=== PATIENT | female | born 1945 | race Caucasian/White ===

== ENCOUNTER 2016-11-19 10:44 | Inpatient (IN) ==
[2016-11-19] MEDS ORDERED: PROPOFOL 1,000 MG/100 ML BOTTLE IV ONE (10:55)
[2016-11-19] MEDS: PROPOFOL 1,000 MG/100 ML BOTTLE IV SCH (11:00)
[2016-11-19 11:29] LABS: ABG Base Excess -7.8 MMOL/L (-2.5-2.5); ABG HCO3 18.2 MMOL/L (20-26); ABG Oxygen Saturation 98.7 % (95-100); ABG PCO2 35.8 MM HG (35-48); ABG PH 7.307 (7.35-7.45); ABG TCO2 16.3 MMOL/L (23-27)
[2016-11-19 11:41] LABS: Basophils % 0.1 % (0.0-0.8); Eosinophils % 0.1 % (0.00-10.9); Hematocrit 33.4 VOL% (35.7-47.0); Hemoglobin 11.1 GM/DL (12.0-16.0); Immature Granulocytes % 2.1 %; Immature Granulocytes Absolute 0.27 #; Lymphocytes # 0.6 10*3/uL (1.4-4.0); Lymphocytes % 4.9 % (21.3-54.2); Mean Corpuscular HGB Conc 33.2 GM/DL (32-36); Mean Corpuscular Hemoglobin 28 PG (27-34); Mean Corpuscular Volume 83.5 FL (87-102); Mean Platelet Volume 11.5 FL (9.6-12.0); Monocytes # 0.7 10*3/uL (0.11-0.8); Monocytes % 5.3 % (1.7-12.7); NRBC # 0.03 10*3/uL; Neutrophils # 11.3 10*3/uL (1.4-7.4); Neutrophils % 87.5 % (38.7-73.9); Platelet Count 297 T/CUMM (130-400); Red Cell Distribution Width 15.4 % (9.3-17.3); White Blood Count 12.9 T/CUMM (4-12)
[2016-11-19 11:47] LABS: PT Patient Result 10.2 SECS
[2016-11-19 12:15] LABS: Alanine Aminotransferase 23 U/L (13-56); Albumin 1.8 G/DL (3.4-5.0); Alkaline Phosphatase 149 U/L (45-117); Aspartate Amino Transferase 38 U/L (0-37); Blood Urea Nitrogen 75 MG/DL (7-18); CKMB % 2.1 %; Calcium 8.6 MG/DL (8.5-10.1); Glucose 356 MG/DL (74-106); Osmolality,Calculated 277.2 MOS/KG (273-304); Troponin I Only < 0.015 NG/ML (0.00-0.045)
[2016-11-19 12:29] LABS: Band Neutrophils 1 % (0-10); Giant Platelets Few; Lymphocytes 7 % (20-55); Nucleated Red Blood Cells 1 (0-5); Platelet Estimate Adequate; Segmented Neutrophils 86 % (50-85); Total Cells Counted 100
[2016-11-19 12:30] LABS: Burr Cells Slight; Hypochromasia Slight; Ovalocytes Slight
[2016-11-19 12:32] LABS: Potassium 8.5 MMOL/L (3.5-5.1); Sodium 120 MMOL/L (136-145)
[2016-11-19 13:17] LABS: Apearance,Urine Slightly Hazy (Clear); Bacteria,Urine Occasional /HPF (Few); Bilirubin,Urine Negative (Negative); Blood, Urine Small mg/dL (Negative); Glucose,Urine (UA) Negative (Negative); Hyaline Casts,Urine 5 /LPF (0-3); Ketones,Urine Negative (Negative); Mucus,Urine Occasional /LPF (Occasional); Nitrite,Urine Negative (Negative); Protein,Urine 100 MG/DL; RBC,Urine 1 /HPF (0-4); Squamous Epithelial Cell,Urine Occasional /HPF (0-10); Urine Color Yellow (Yellow); Urine Urobilinogen < 2.0 EU/DL (0.2-1.0); WBC,Urine 2 /HPF (0-6)
[2016-11-19 13:25] LABS: Barbiturates Screen,Urine Negative (Negative); Benzodiazepines Screen,Urine Positive (Negative); Cannabinoid Screen,Urine Negative (Negative); Opiate Screen,Urine Positive (Negative); Phencyclidine Screen,Urine Negative (Negative)
[2016-11-19] MEDS ORDERED: CALCIUM CHLORIDE 1,000 MG/10 ML SYRINGE IV STA (14:06)
[2016-11-19] MEDS ORDERED: DEXTROSE 50% 25 GM/50 ML VIAL IV STA (14:06)
[2016-11-19] MEDS ORDERED: ALBUTEROL NEB SOLN 5 MG/ML 20 ML/BOTTLE CONT NEB STA (14:06)
[2016-11-19] MEDS ORDERED: LEVOFLOXACIN INJ 750 MG in PREMIX 1 EACH IV STA (14:07)
[2016-11-19] MEDS ORDERED: INSULIN REGULAR 100 UNIT/ML IV STA (14:07)
[2016-11-19] MEDS ORDERED: DEXTROSE 50% 25 GM/50 ML SYRINGE IV ONE (14:18)
[2016-11-19] MEDS ORDERED: LEVOFLOXACIN INJ 150 ML IV ONE (14:18)
[2016-11-19] MEDS ORDERED: CALCIUM CHLORIDE 1,000 MG/10 ML SYRINGE IV ONE (14:18)
[2016-11-19] MEDS ORDERED: INSULIN REGULAR 100 UNIT/ML ONE (14:19)
[2016-11-19 14:41] LABS: ABG HCO3 19.5 MMOL/L (20-26); ABG Oxygen Saturation 97.9 % (95-100); ABG PCO2 42.9 MM HG (35-48); ABG PH 7.286 (7.35-7.45); ABG TCO2 18.7 MMOL/L (23-27)
[2016-11-19] MEDS ORDERED: ALBUTEROL 2.5 MG/3 ML NEB RESP TX PRN (14:59)
[2016-11-19] MEDS ORDERED: ALBUTEROL/IPRATROPIUM 3 ML NEB RESP TX PRN (14:59)
[2016-11-19] MEDS ORDERED: ONDANSETRON 4 MG/2 ML VIAL IV PRN (14:59)
[2016-11-19] MEDS ORDERED: ACETAMINOPHEN 325 MG TABLET PO PRN (14:59)
[2016-11-19] MEDS ORDERED: ATROPINE 1 MG/1 ML VIAL ONE (15:31)
[2016-11-19 15:44] LABS: Alanine Aminotransferase 27 U/L (13-56); Albumin 1.8 G/DL (3.4-5.0); Alkaline Phosphatase 155 U/L (45-117); Aspartate Amino Transferase 56 U/L (0-37); Bilirubin,Total < 0.39 MG/DL (0.2-1.0); Blood Urea Nitrogen 68 MG/DL (7-18); Glucose 376 MG/DL (74-106); Osmolality,Calculated 285.5 MOS/KG (273-304); Sodium 125 MMOL/L (136-145); Total Protein 4.1 G/DL (6.4-8.3)
[2016-11-19 15:49] LABS: Potassium 7.4 MMOL/L (3.5-5.1)
[2016-11-19] MEDS: SODIUM POLYSTYRENE SULFATE 15 GM/60 ML BOTTLE PO SCH ×2 (16:17→23:22)
[2016-11-19] MEDS: SODIUM CHLORIDE 0.9% 1,000 ML IV SCH (16:17)
[2016-11-19] MEDS ORDERED: SODIUM PHOSPHATE ENEMA 133 ML BOTTLE RECTAL ONE (16:32)
[2016-11-19] MEDS ORDERED: CALCIUM GLUCONATE 1,000 MG in SODIUM CHLORIDE 0.9% 100 ML IV ONE (16:32)
[2016-11-19] MEDS ORDERED: SODIUM POLYSTYRENE SULFATE 15 GM/60 ML BOTTLE RECTAL ONE (16:32)
[2016-11-19] MEDS: ENOXAPARIN 30 MG/0.3 ML SYRINGE SUBCUT SCH (16:38)
[2016-11-19] MEDS: PANTOPRAZOLE 40 MG VIAL IV SCH (16:39)
[2016-11-19] MEDS ORDERED: SODIUM BICARB INJ 150 MEQ in DEXTROSE 5% 1,000 ML IV SCH (17:00)
[2016-11-19] MEDS: SODIUM BICARB INJ 150 MEQ in DEXTROSE 5% 1,000 ML IV SCH (17:27)
[2016-11-19] MEDS ORDERED: INFLUENZA VIRUS VACCINE 0.5 ML SYRINGE IM ONE (18:12)
[2016-11-19 18:22] LABS: CKMB % 1.4 %; Troponin I Only 0.025 NG/ML (0.00-0.045)
[2016-11-19 20:14] LABS: Hepatitis A Ab IgM Quant 0.09 Index; Hepatitis A Ab IgM Result Negative (Negative); Hepatitis B Core IgM Quant 0.16 Index; Hepatitis B Core IgM Result Negative (Negative); Hepatitis B Surface Ag Quant < 0.10 Index; Hepatitis B Surface Ag Result Negative (Negative); Hepatitis C Virus Ab Result Negative (Negative)
[2016-11-19 21:07] LABS: Calcium 8.7 MG/DL (8.5-10.1); Osmolality,Calculated 291.7 MOS/KG (273-304); Potassium 4.5 MMOL/L (3.5-5.1)
[2016-11-19 23:01] LABS: Albumin 1.6 G/DL (3.4-5.0); Calcium 8.7 MG/DL (8.5-10.1); Osmolality,Calculated 280.8 MOS/KG (273-304); Phosphorous 1.7 MG/DL (2.5-4.9)
[2016-11-20] MEDS: PROPOFOL 1,000 MG/100 ML BOTTLE IV SCH ×2 (01:24→14:39)
[2016-11-20 02:04] LABS: CKMB % 1.5 %; Troponin I Only 0.022 NG/ML (0.00-0.045)
[2016-11-20 03:38] LABS: ABG Base Excess 14.2 MMOL/L (-2.5-2.5); ABG HCO3 36.7 MMOL/L (20-26); ABG PCO2 37.5 MM HG (35-48); ABG PH 7.608 (7.35-7.45); ABG PO2 102.8 MM HG (80-95); ABG TCO2 37.8 MMOL/L (23-27); Allen Test Positive; Pt O2 Delivery Device Ventilator
[2016-11-20 05:01] LABS: Basophils % 0.1 % (0.0-0.8); Hematocrit 30.3 VOL% (35.7-47.0); Hemoglobin 10.4 GM/DL (12.0-16.0); Immature Granulocytes Absolute 0.07 #; Lymphocytes # 0.3 10*3/uL (1.4-4.0); Lymphocytes % 4.6 % (21.3-54.2); Mean Corpuscular HGB Conc 34.3 GM/DL (32-36); Mean Corpuscular Hemoglobin 27 PG (27-34); Mean Corpuscular Volume 79.7 FL (87-102); Mean Platelet Volume 11.2 FL (9.6-12.0); Monocytes # 0.4 10*3/uL (0.11-0.8); NRBC # 0.03 10*3/uL; Neutrophils # 6.4 10*3/uL (1.4-7.4); Neutrophils % 89.3 % (38.7-73.9); Platelet Count 299 T/CUMM (130-400); Red Cell Distribution Width 15.1 % (9.3-17.3); White Blood Count 7.2 T/CUMM (4-12)
[2016-11-20 05:28] LABS: Ammonia 43 UMOL/L (11-32)
[2016-11-20 05:33] LABS: Alanine Aminotransferase 23 U/L (13-56); Albumin 1.6 G/DL (3.4-5.0); Alkaline Phosphatase 135 U/L (45-117); Aspartate Amino Transferase 60 U/L (0-37); Bilirubin,Total < 0.39 MG/DL (0.2-1.0); Blood Urea Nitrogen 17 MG/DL (7-18); Calcium 8.2 MG/DL (8.5-10.1); Glucose 222 MG/DL (74-106); Potassium 3.6 MMOL/L (3.5-5.1); Sodium 136 MMOL/L (136-145); Total Protein 3.6 G/DL (6.4-8.3)
[2016-11-20 05:47] LABS: Giant Platelets Few; Hypochromasia 1+; Lymphocytes 6 % (20-55); PT Patient Result 10.9 SECS; Platelet Estimate Adequate; Segmented Neutrophils 91 % (50-85); Total Cells Counted 100
[2016-11-20] MEDS: SODIUM CHLORIDE 0.9% 1,000 ML IV SCH (07:21)
[2016-11-20 07:34] LABS: CKMB % 0.9 %; Troponin I Only 0.032 NG/ML (0.00-0.045)
[2016-11-20] MEDS ORDERED: DILTIAZEM 100 MG VIAL.ADD IV ONE (07:46)
[2016-11-20] MEDS ORDERED: DILTIAZEM 50 MG/10 ML VIAL IV ONE ×2 (07:46→07:50)
[2016-11-20] MEDS ORDERED: SODIUM CHLORIDE 0.9% 100 ML IV ONE (07:49)
[2016-11-20] MEDS: DILTIAZEM INJ 100 MG in SODIUM CHLORIDE 0.9% 100 ML IV SCH (08:25)
[2016-11-20] MEDS: SODIUM BICARB INJ 150 MEQ in DEXTROSE 5% 1,000 ML IV SCH (08:26)
[2016-11-20] MEDS ORDERED: GLUCAGON 1 MG VIAL IM PRN (08:48)
[2016-11-20] MEDS ORDERED: DEXTROSE 50% 25 GM/50 ML VIAL IV PRN (08:48)
[2016-11-20] MEDS ORDERED: DILTIAZEM 30 MG TABLET PO SCH (09:00)
[2016-11-20] MEDS ORDERED: SODIUM ACETATE 50 MEQ in DEXTROSE 5% NACL 0.45% 1,000 ML IV SCH (09:00)
[2016-11-20 09:14] LABS: Phosphorous 1.9 MG/DL (2.5-4.9); Prealbumin 13.1 MG/DL (20-40)
[2016-11-20] MEDS: methylPREDNISolone SOD SUC 125 MG/2 ML VIAL IV SCH (09:46)
[2016-11-20] MEDS: TACROLIMUS 0.5 MG CAPSULE PO SCH ×2 (09:47→20:21)
[2016-11-20] MEDS ORDERED: DILTIAZEM 60 MG TABLET PO SCH (10:30)
[2016-11-20] MEDS ORDERED: ASPIRIN CHEW 81 MG TABLET PO SCH (10:30)
[2016-11-20] MEDS ORDERED: DILTIAZEM 30 MG TABLET PO ONE (10:34)
[2016-11-20] MEDS ORDERED: FUROSEMIDE 40 MG/4 ML VIAL IV ONE (10:47)
[2016-11-20] MEDS ORDERED: TACROLIMUS 0.5 MG CAPSULE PO SCH (11:30)
[2016-11-20 11:57] LABS: Troponin I Only 0.035 NG/ML (0.00-0.045)
[2016-11-20] MEDS: LEVOTHYROXINE 125 MCG TABLET PO SCH (12:20)
[2016-11-20] MEDS: INSULIN REGULAR 100 UNIT/ML SUBCUT SCH ×2 (12:20→18:37)
[2016-11-20] MEDS: risperiDONE 1 MG TABLET PO SCH (12:20)
[2016-11-20] MEDS: MORPHINE ER 15 MG TABLET PO SCH ×2 (12:21→22:35)
[2016-11-20] MEDS: PANTOPRAZOLE 40 MG VIAL IV SCH (14:39)
[2016-11-20] MEDS: DILTIAZEM 60 MG TABLET PO SCH ×2 (16:26→22:35)
[2016-11-20] MEDS: ENOXAPARIN 30 MG/0.3 ML SYRINGE SUBCUT SCH (16:26)
[2016-11-20] MEDS: MONTELUKAST 10 MG TABLET PO SCH (20:21)
[2016-11-21] MEDS: INSULIN REGULAR 100 UNIT/ML SUBCUT SCH ×4 (00:10→18:07)
[2016-11-21 03:11] LABS: ABG Base Excess 15.9 MMOL/L (-2.5-2.5); ABG HCO3 37.9 MMOL/L (20-26); ABG PCO2 35.8 MM HG (35-48); ABG PH 7.643 (7.35-7.45); ABG PO2 165.1 MM HG (80-95); Allen Test Positive; Pt O2 Delivery Device Ventilator
[2016-11-21 03:17] LABS: Basophils % 0.1 % (0.0-0.8); Hematocrit 30.4 VOL% (35.7-47.0); Hemoglobin 10.2 GM/DL (12.0-16.0); Immature Granulocytes % 0.8 %; Immature Granulocytes Absolute 0.08 #; Lymphocytes # 0.8 10*3/uL (1.4-4.0); Lymphocytes % 7.9 % (21.3-54.2); Mean Corpuscular HGB Conc 33.6 GM/DL (32-36); Mean Corpuscular Hemoglobin 27 PG (27-34); Mean Corpuscular Volume 81.3 FL (87-102); Mean Platelet Volume 10.6 FL (9.6-12.0); Monocytes # 0.6 10*3/uL (0.11-0.8); Monocytes % 5.4 % (1.7-12.7); Neutrophils # 8.7 10*3/uL (1.4-7.4); Neutrophils % 85.8 % (38.7-73.9); Platelet Count 281 T/CUMM (130-400); Red Blood Count 3.74 MC/CUMM (3.8-5.5); Red Cell Distribution Width 15.4 % (9.3-17.3); White Blood Count 10.1 T/CUMM (4-12)
[2016-11-21 03:38] LABS: Calcium 7.6 MG/DL (8.5-10.1); Magnesium 1.9 MG/DL (1.8-2.4); Phosphorous 2.5 MG/DL (2.5-4.9); Prealbumin 11.5 MG/DL (20-40)
[2016-11-21 03:48] LABS: Potassium 2.4 MMOL/L (3.5-5.1)
[2016-11-21] MEDS: PROPOFOL 1,000 MG/100 ML BOTTLE IV SCH ×3 (04:32→22:12)
[2016-11-21] MEDS: DILTIAZEM 60 MG TABLET PO SCH ×4 (04:33→22:57)
[2016-11-21] MEDS: POTASSIUM CHLORIDE RIDER 10 MEQ in PREMIX 1 EACH IV PRN ×3 (05:55→08:00)
[2016-11-21] MEDS ORDERED: POTASSIUM CHLORIDE 20 MEQ/15 ML UDCUP PER TUBE ONE (08:00)
[2016-11-21] MEDS: LEVOTHYROXINE 125 MCG TABLET PO SCH (08:33)
[2016-11-21] MEDS: TACROLIMUS 0.5 MG CAPSULE PO SCH ×2 (08:34→21:10)
[2016-11-21] MEDS: ASPIRIN EC 81 MG TABLET PO SCH (08:34)
[2016-11-21] MEDS: risperiDONE 1 MG TABLET PO SCH (08:34)
[2016-11-21] MEDS: methylPREDNISolone SOD SUC 125 MG/2 ML VIAL IV SCH (08:36)
[2016-11-21] MEDS ORDERED: DILTIAZEM CD 120 MG CAPSULE PO SCH (09:00)
[2016-11-21] MEDS: DILTIAZEM INJ 100 MG in SODIUM CHLORIDE 0.9% 100 ML IV SCH (10:58)
[2016-11-21] MEDS: MORPHINE ER 15 MG TABLET PO SCH ×2 (11:05→22:56)
[2016-11-21] MEDS: LEVOFLOXACIN INJ 500 MG in PREMIX 1 EACH IV SCH (11:05)
[2016-11-21] MEDS: PANTOPRAZOLE 40 MG VIAL IV SCH (16:58)
[2016-11-21] MEDS: ENOXAPARIN 30 MG/0.3 ML SYRINGE SUBCUT SCH (17:04)
[2016-11-21] MEDS: MONTELUKAST 10 MG TABLET PO SCH (21:10)
[2016-11-22] MEDS: INSULIN REGULAR 100 UNIT/ML SUBCUT SCH ×5 (01:14→23:47)
[2016-11-22 04:12] LABS: Basophils % 0.2 % (0.0-0.8); Hematocrit 29.9 VOL% (35.7-47.0); Hemoglobin 9.9 GM/DL (12.0-16.0); Immature Granulocytes % 1.8 %; Immature Granulocytes Absolute 0.16 #; Lymphocytes # 0.6 10*3/uL (1.4-4.0); Lymphocytes % 6.4 % (21.3-54.2); Mean Corpuscular HGB Conc 33.1 GM/DL (32-36); Mean Corpuscular Hemoglobin 27 PG (27-34); Mean Corpuscular Volume 82.1 FL (87-102); Mean Platelet Volume 10.5 FL (9.6-12.0); Monocytes # 0.6 10*3/uL (0.11-0.8); Monocytes % 6.4 % (1.7-12.7); NRBC # 0.02 10*3/uL; Neutrophils # 7.5 10*3/uL (1.4-7.4); Neutrophils % 85.2 % (38.7-73.9); Platelet Count 281 T/CUMM (130-400); Red Blood Count 3.64 MC/CUMM (3.8-5.5); Red Cell Distribution Width 15.3 % (9.3-17.3); White Blood Count 8.8 T/CUMM (4-12)
[2016-11-22 04:18] LABS: ABG Base Excess 12.8 MMOL/L (-2.5-2.5); ABG HCO3 37.3 MMOL/L (20-26); ABG Oxygen Saturation 98.2 % (95-100); ABG PCO2 47.8 MM HG (35-48); ABG PO2 195.2 MM HG (80-95); ABG TCO2 38.8 MMOL/L (23-27)
[2016-11-22 04:23] LABS: PT Patient Result 10.4 SECS; Partial Thromboplastin Time 28.7 SECS (0-40)
[2016-11-22] MEDS: DILTIAZEM 60 MG TABLET PO SCH ×4 (04:35→22:56)
[2016-11-22 04:36] LABS: Calcium 7.7 MG/DL (8.5-10.1); Magnesium 1.9 MG/DL (1.8-2.4); Osmolality,Calculated 289.4 MOS/KG (273-304); Potassium 3.7 MMOL/L (3.5-5.1)
[2016-11-22 05:15] LABS: Free T4 (Free Thyroxine) 0.83 NG/DL (0.76-1.46); Thyroid Stimulating Hormone 0.525 uIU/ml (0.358-3.74)
[2016-11-22] MEDS: PROPOFOL 1,000 MG/100 ML BOTTLE IV SCH ×2 (05:16→18:08)
[2016-11-22] MEDS: methylPREDNISolone SOD SUC 125 MG/2 ML VIAL IV SCH (10:06)
[2016-11-22] MEDS: ALBUMIN 25% 25 GM in PREMIX 1 EACH IV SCH ×2 (10:10→16:57)
[2016-11-22] MEDS: TACROLIMUS 0.5 MG CAPSULE PO SCH ×2 (10:15→21:20)
[2016-11-22] MEDS: risperiDONE 1 MG TABLET PO SCH (10:16)
[2016-11-22] MEDS: LEVOTHYROXINE 125 MCG TABLET PO SCH (10:17)
[2016-11-22] MEDS: ASPIRIN EC 81 MG TABLET PO SCH (10:17)
[2016-11-22] MEDS: LEVOFLOXACIN INJ 500 MG in PREMIX 1 EACH IV SCH (10:18)
[2016-11-22] MEDS: MUPIROCIN 2% OINT 22 GM TUBE TOP SCH ×2 (12:48→21:26)
[2016-11-22] MEDS: MORPHINE ER 15 MG TABLET PO SCH ×2 (12:48→22:56)
[2016-11-22] MEDS: LINEZOLID INJ 300 MG in PREMIX 1 EACH IV SCH (16:30)
[2016-11-22] MEDS: PANTOPRAZOLE 40 MG VIAL IV SCH (16:30)
[2016-11-22] MEDS: FUROSEMIDE 40 MG/4 ML VIAL IV SCH (16:32)
[2016-11-22] MEDS: ENOXAPARIN 30 MG/0.3 ML SYRINGE SUBCUT SCH (16:40)
[2016-11-22] MEDS: MONTELUKAST 10 MG TABLET PO SCH (21:20)
[2016-11-23] MEDS: ALBUMIN 25% 25 GM in PREMIX 1 EACH IV SCH ×3 (00:50→16:20)
[2016-11-23] MEDS: PROPOFOL 1,000 MG/100 ML BOTTLE IV SCH ×2 (01:45→12:30)
[2016-11-23] MEDS: LINEZOLID INJ 300 MG in PREMIX 1 EACH IV SCH ×2 (01:50→14:36)
[2016-11-23 03:29] LABS: ABG Base Excess 13.2 MMOL/L (-2.5-2.5); ABG HCO3 37.8 MMOL/L (20-26); ABG Oxygen Saturation 97.8 % (95-100); ABG PCO2 49.5 MM HG (35-48); ABG PH 7.501 (7.35-7.45); ABG PO2 167.9 MM HG (80-95); ABG TCO2 39.3 MMOL/L (23-27)
[2016-11-23] MEDS: DILTIAZEM 60 MG TABLET PO SCH ×4 (04:42→22:23)
[2016-11-23 05:21] LABS: Basophils % 0.2 % (0.0-0.8); Hematocrit 26.7 VOL% (35.7-47.0); Hemoglobin 8.9 GM/DL (12.0-16.0); Immature Granulocytes % 4.1 %; Immature Granulocytes Absolute 0.41 #; Lymphocytes # 0.6 10*3/uL (1.4-4.0); Mean Corpuscular HGB Conc 33.3 GM/DL (32-36); Mean Corpuscular Hemoglobin 28 PG (27-34); Mean Corpuscular Volume 82.4 FL (87-102); Mean Platelet Volume 10.4 FL (9.6-12.0); Monocytes # 0.8 10*3/uL (0.11-0.8); Monocytes % 7.6 % (1.7-12.7); Neutrophils # 8.2 10*3/uL (1.4-7.4); Neutrophils % 82.1 % (38.7-73.9); Platelet Count 233 T/CUMM (130-400); Red Blood Count 3.24 MC/CUMM (3.8-5.5)
[2016-11-23] MEDS: INSULIN REGULAR 100 UNIT/ML SUBCUT SCH ×3 (05:32→18:15)
[2016-11-23 05:50] LABS: Calcium 7.7 MG/DL (8.5-10.1); Magnesium 1.9 MG/DL (1.8-2.4); Osmolality,Calculated 287.7 MOS/KG (273-304); Potassium 3.2 MMOL/L (3.5-5.1)
[2016-11-23] MEDS ORDERED: POTASSIUM CHLORIDE 20 MEQ/15 ML UDCUP PER TUBE ONE (08:25)
[2016-11-23] MEDS: FUROSEMIDE 40 MG/4 ML VIAL IV SCH ×2 (08:53→16:20)
[2016-11-23] MEDS: LEVOTHYROXINE 125 MCG TABLET PO SCH (08:54)
[2016-11-23] MEDS: ASPIRIN EC 81 MG TABLET PO SCH (08:54)
[2016-11-23] MEDS: TACROLIMUS 0.5 MG CAPSULE PO SCH ×2 (08:54→21:11)
[2016-11-23] MEDS: risperiDONE 1 MG TABLET PO SCH (08:54)
[2016-11-23] MEDS: methylPREDNISolone SOD SUC 125 MG/2 ML VIAL IV SCH (08:55)
[2016-11-23] MEDS: LEVOFLOXACIN INJ 500 MG in PREMIX 1 EACH IV SCH (09:55)
[2016-11-23] MEDS: MUPIROCIN 2% OINT 22 GM TUBE TOP SCH ×2 (09:55→21:11)
[2016-11-23] MEDS: MORPHINE ER 15 MG TABLET PO SCH ×2 (12:01→22:30)
[2016-11-23] MEDS: PANTOPRAZOLE 40 MG VIAL IV SCH (14:28)
[2016-11-23] MEDS: ENOXAPARIN 30 MG/0.3 ML SYRINGE SUBCUT SCH (16:20)
[2016-11-23] MEDS: MONTELUKAST 10 MG TABLET PO SCH (21:11)
[2016-11-24] MEDS: ALBUMIN 25% 25 GM in PREMIX 1 EACH IV SCH (00:17)
[2016-11-24] MEDS: INSULIN REGULAR 100 UNIT/ML SUBCUT SCH ×4 (00:19→18:25)
[2016-11-24] MEDS: LINEZOLID INJ 300 MG in PREMIX 1 EACH IV SCH ×2 (01:29→15:39)
[2016-11-24] MEDS: PROPOFOL 1,000 MG/100 ML BOTTLE IV SCH ×2 (01:29→11:16)
[2016-11-24 03:36] LABS: ABG Base Excess 13.2 MMOL/L (-2.5-2.5); ABG HCO3 38.1 MMOL/L (20-26); ABG Oxygen Saturation 98.1 % (95-100); ABG PCO2 50.3 MM HG (35-48); ABG PH 7.497 (7.35-7.45); ABG PO2 189.1 MM HG (80-95); ABG TCO2 39.6 MMOL/L (23-27); Allen Test Positive; Pt O2 Delivery Device Ventilator
[2016-11-24] MEDS: DILTIAZEM 60 MG TABLET PO SCH ×4 (04:11→22:23)
[2016-11-24 04:47] LABS: Calcium 8.4 MG/DL (8.5-10.1); Magnesium 1.8 MG/DL (1.8-2.4); Osmolality,Calculated 289.7 MOS/KG (273-304); Potassium 2.7 MMOL/L (3.5-5.1)
[2016-11-24 04:51] LABS: Basophils % 0.1 % (0.0-0.8); Hematocrit 26.8 VOL% (35.7-47.0); Hemoglobin 8.9 GM/DL (12.0-16.0); Immature Granulocytes % 3.8 %; Immature Granulocytes Absolute 0.38 #; Lymphocytes # 0.7 10*3/uL (1.4-4.0); Lymphocytes % 6.8 % (21.3-54.2); Mean Corpuscular HGB Conc 33.2 GM/DL (32-36); Mean Corpuscular Hemoglobin 27 PG (27-34); Mean Corpuscular Volume 82.5 FL (87-102); Mean Platelet Volume 10.6 FL (9.6-12.0); Monocytes # 0.8 10*3/uL (0.11-0.8); Monocytes % 8.4 % (1.7-12.7); NRBC # 0.02 10*3/uL; Neutrophils % 80.9 % (38.7-73.9); Platelet Count 239 T/CUMM (130-400); Red Blood Count 3.25 MC/CUMM (3.8-5.5); White Blood Count 9.9 T/CUMM (4-12)
[2016-11-24 06:00] LABS: Phosphorous 3.2 MG/DL (2.5-4.9); Prealbumin 23.1 MG/DL (20-40)
[2016-11-24] MEDS ORDERED: POTASSIUM CHLORIDE 20 MEQ/15 ML UDCUP PER TUBE ONE ×2 (08:18)
[2016-11-24] MEDS ORDERED: POTASSIUM CHLORIDE 20 MEQ/15 ML UDCUP PER TUBE SCH (09:00)
[2016-11-24] MEDS: ASPIRIN EC 81 MG TABLET PO SCH (09:40)
[2016-11-24] MEDS: FUROSEMIDE 40 MG/4 ML VIAL IV SCH ×2 (09:40→16:02)
[2016-11-24] MEDS: risperiDONE 1 MG TABLET PO SCH (09:40)
[2016-11-24] MEDS: LEVOTHYROXINE 125 MCG TABLET PO SCH (09:40)
[2016-11-24] MEDS: TACROLIMUS 0.5 MG CAPSULE PO SCH ×2 (09:40→20:40)
[2016-11-24] MEDS: MUPIROCIN 2% OINT 22 GM TUBE TOP SCH ×2 (09:41→20:41)
[2016-11-24] MEDS: LEVOFLOXACIN INJ 500 MG in PREMIX 1 EACH IV SCH (09:48)
[2016-11-24] MEDS: MORPHINE ER 15 MG TABLET PO SCH ×2 (12:36→22:31)
[2016-11-24] MEDS: PANTOPRAZOLE 40 MG VIAL IV SCH (15:40)
[2016-11-24] MEDS: ENOXAPARIN 30 MG/0.3 ML SYRINGE SUBCUT SCH (16:02)
[2016-11-24] MEDS: POTASSIUM CHLORIDE 20 MEQ/15 ML UDCUP PER TUBE SCH (20:40)
[2016-11-24] MEDS: MONTELUKAST 10 MG TABLET PO SCH (20:41)
[2016-11-25] MEDS: LINEZOLID INJ 300 MG in PREMIX 1 EACH IV SCH ×2 (01:16→16:50)
[2016-11-25] MEDS: INSULIN REGULAR 100 UNIT/ML SUBCUT SCH ×4 (01:16→19:03)
[2016-11-25 03:22] LABS: Allen Test Positive; Pt O2 Delivery Device Ventilator
[2016-11-25 03:23] LABS: ABG Base Excess 8.8 MMOL/L (-2.5-2.5); ABG HCO3 32.6 MMOL/L (20-26); ABG Oxygen Saturation 98.6 % (95-100); ABG PCO2 53.7 MM HG (35-48); ABG PH 7.419 (7.35-7.45); ABG TCO2 31.9 MMOL/L (23-27)
[2016-11-25] MEDS: DILTIAZEM 60 MG TABLET PO SCH ×4 (03:47→22:21)
[2016-11-25] MEDS: PROPOFOL 1,000 MG/100 ML BOTTLE IV SCH ×2 (03:50→16:49)
[2016-11-25 04:26] LABS: Basophils % 0.2 % (0.0-0.8); Eosinophils # 0.1 10*3/uL (0.0-0.87); Eosinophils % 0.6 % (0.00-10.9); Hematocrit 28.3 VOL% (35.7-47.0); Hemoglobin 9.2 GM/DL (12.0-16.0); Lymphocytes # 1.1 10*3/uL (1.4-4.0); Lymphocytes % 8.6 % (21.3-54.2); Mean Corpuscular HGB Conc 32.5 GM/DL (32-36); Mean Corpuscular Hemoglobin 28 PG (27-34); Mean Corpuscular Volume 84.5 FL (87-102); Mean Platelet Volume 10.5 FL (9.6-12.0); Monocytes # 0.9 10*3/uL (0.11-0.8); Monocytes % 7.4 % (1.7-12.7); Neutrophils # 9.9 10*3/uL (1.4-7.4); Neutrophils % 79.2 % (38.7-73.9); Platelet Count 235 T/CUMM (130-400); Red Blood Count 3.35 MC/CUMM (3.8-5.5); Red Cell Distribution Width 15.1 % (9.3-17.3); White Blood Count 12.5 T/CUMM (4-12)
[2016-11-25 05:00] LABS: Calcium 8.5 MG/DL (8.5-10.1); Magnesium 1.9 MG/DL (1.8-2.4); Osmolality,Calculated 295.5 MOS/KG (273-304); Potassium 3.5 MMOL/L (3.5-5.1)
[2016-11-25] MEDS ORDERED: MIDAZOLAM 2 MG/2 ML VIAL ONE (09:04)
[2016-11-25] MEDS: FUROSEMIDE 40 MG/4 ML VIAL IV SCH ×2 (09:45→16:51)
[2016-11-25] MEDS: TACROLIMUS 0.5 MG CAPSULE PO SCH ×2 (09:46→20:38)
[2016-11-25] MEDS: ASPIRIN EC 81 MG TABLET PO SCH (09:46)
[2016-11-25] MEDS: POTASSIUM CHLORIDE 20 MEQ/15 ML UDCUP PER TUBE SCH ×2 (09:46→20:38)
[2016-11-25] MEDS: BACITRACIN OINT 0.9 GM PACK TOP SCH (09:46)
[2016-11-25] MEDS: LEVOFLOXACIN INJ 500 MG in PREMIX 1 EACH IV SCH (09:47)
[2016-11-25] MEDS: risperiDONE 1 MG TABLET PO SCH (09:47)
[2016-11-25] MEDS: LEVOTHYROXINE 125 MCG TABLET PO SCH (09:47)
[2016-11-25] MEDS: MUPIROCIN 2% OINT 22 GM TUBE TOP SCH ×2 (09:56→20:39)
[2016-11-25] MEDS: MEROPENEM 500 MG in SODIUM CHLORIDE 0.9% 50 ML IV SCH ×2 (11:36→22:21)
[2016-11-25] MEDS: MORPHINE ER 15 MG TABLET PO SCH ×2 (11:36→22:32)
[2016-11-25] MEDS: PANTOPRAZOLE 40 MG VIAL IV SCH (16:50)
[2016-11-25] MEDS: ENOXAPARIN 30 MG/0.3 ML SYRINGE SUBCUT SCH (16:51)
[2016-11-25] MEDS: MONTELUKAST 10 MG TABLET PO SCH (20:38)
[2016-11-26] MEDS: INSULIN REGULAR 100 UNIT/ML SUBCUT SCH ×4 (00:20→18:59)
[2016-11-26] MEDS: LINEZOLID INJ 300 MG in PREMIX 1 EACH IV SCH ×2 (01:18→14:55)
[2016-11-26 03:26] LABS: ABG Base Excess 10.8 MMOL/L (-2.5-2.5); ABG HCO3 36.3 MMOL/L (20-26); ABG Oxygen Saturation 97.3 % (95-100); ABG PCO2 54.7 MM HG (35-48); Pt O2 Delivery Device Ventilator
[2016-11-26] MEDS: DILTIAZEM 60 MG TABLET PO SCH ×3 (04:13→18:35)
[2016-11-26 04:48] LABS: Basophils % 0.2 % (0.0-0.8); Eosinophils # 0.2 10*3/uL (0.0-0.87); Eosinophils % 1.2 % (0.00-10.9); Hematocrit 27.6 VOL% (35.7-47.0); Hemoglobin 9.2 GM/DL (12.0-16.0); Immature Granulocytes % 2.8 %; Immature Granulocytes Absolute 0.46 #; Lymphocytes % 5.9 % (21.3-54.2); Mean Corpuscular HGB Conc 33.3 GM/DL (32-36); Mean Corpuscular Hemoglobin 28 PG (27-34); Mean Corpuscular Volume 83.4 FL (87-102); Mean Platelet Volume 11.3 FL (9.6-12.0); Monocytes # 0.7 10*3/uL (0.11-0.8); Monocytes % 4.1 % (1.7-12.7); Neutrophils % 85.8 % (38.7-73.9); Platelet Count 246 T/CUMM (130-400); Red Blood Count 3.31 MC/CUMM (3.8-5.5); Red Cell Distribution Width 15.3 % (9.3-17.3); White Blood Count 16.3 T/CUMM (4-12)
[2016-11-26 05:17] LABS: Calcium 8.4 MG/DL (8.5-10.1); Magnesium 2.1 MG/DL (1.8-2.4); Osmolality,Calculated 295.5 MOS/KG (273-304); Potassium 3.6 MMOL/L (3.5-5.1)
[2016-11-26] MEDS: PROPOFOL 1,000 MG/100 ML BOTTLE IV SCH ×2 (06:19→13:07)
[2016-11-26] MEDS: POTASSIUM CHLORIDE 20 MEQ/15 ML UDCUP PER TUBE SCH ×2 (09:26→21:09)
[2016-11-26] MEDS: risperiDONE 1 MG TABLET PO SCH (09:27)
[2016-11-26] MEDS: TACROLIMUS 0.5 MG CAPSULE PO SCH ×2 (09:27→21:08)
[2016-11-26] MEDS: ASPIRIN EC 81 MG TABLET PO SCH (09:28)
[2016-11-26] MEDS: BACITRACIN OINT 0.9 GM PACK TOP SCH (09:28)
[2016-11-26] MEDS: FUROSEMIDE 40 MG/4 ML VIAL IV SCH ×2 (09:28→16:22)
[2016-11-26] MEDS: LEVOTHYROXINE 125 MCG TABLET PO SCH (09:28)
[2016-11-26] MEDS: MEROPENEM 500 MG in SODIUM CHLORIDE 0.9% 50 ML IV SCH ×2 (09:29→22:30)
[2016-11-26] MEDS: LACTULOSE 20 GM/30 ML UDCUP PO PRN (09:29)
[2016-11-26] MEDS: MUPIROCIN 2% OINT 22 GM TUBE TOP SCH ×2 (09:34→21:12)
[2016-11-26] MEDS: MORPHINE ER 15 MG TABLET PO SCH (11:00)
[2016-11-26] MEDS ORDERED: RACEPINEPHRINE 0.5 ML NEB RESP TX ONE ×3 (14:51→17:50)
[2016-11-26] MEDS: PANTOPRAZOLE 40 MG VIAL IV SCH (15:14)
[2016-11-26] MEDS ORDERED: methylPREDNISolone SOD SUC 40 MG/1 ML VIAL IV ONE (15:39)
[2016-11-26] MEDS: ENOXAPARIN 30 MG/0.3 ML SYRINGE SUBCUT SCH (16:25)
[2016-11-26] MEDS ORDERED: DILTIAZEM 100 MG VIAL.ADD IV ONE (18:20)
[2016-11-26] MEDS ORDERED: DILTIAZEM INJ 100 MG in SODIUM CHLORIDE 0.9% 100 ML IV SCH (18:30)
[2016-11-26] MEDS: METOPROLOL TARTRATE 5 MG/5 ML VIAL IV PRN ×4 (18:31→18:48)
[2016-11-26] MEDS ORDERED: SUCCINYLCHOLINE 200 MG/10 ML VIAL ONE (18:34)
[2016-11-26] MEDS ORDERED: ETOMIDATE 20 MG/10 ML VIAL IV ONE (18:34)
[2016-11-26 19:43] LABS: ABG Base Excess 7.6 MMOL/L (-2.5-2.5); ABG HCO3 31.4 MMOL/L (20-26); ABG Oxygen Saturation 99.5 % (95-100); ABG PCO2 45.4 MM HG (35-48); ABG TCO2 29.6 MMOL/L (23-27)
[2016-11-26] MEDS: MONTELUKAST 10 MG TABLET PO SCH (21:08)
[2016-11-26] MEDS: methylPREDNISolone SOD SUC 125 MG/2 ML VIAL IV SCH (21:19)
[2016-11-27] MEDS: INSULIN REGULAR 100 UNIT/ML SUBCUT SCH ×4 (00:51→17:53)
[2016-11-27] MEDS: MORPHINE ER 15 MG TABLET PO SCH ×3 (00:52→12:54)
[2016-11-27] MEDS: LINEZOLID INJ 300 MG in PREMIX 1 EACH IV SCH ×2 (01:02→15:04)
[2016-11-27 02:57] LABS: ABG Base Excess 3.5 MMOL/L (-2.5-2.5); ABG HCO3 27.6 MMOL/L (20-26); ABG Oxygen Saturation 99.4 % (95-100); ABG PCO2 36.6 MM HG (35-48); ABG PH 7.477 (7.35-7.45); ABG TCO2 24.7 MMOL/L (23-27)
[2016-11-27] MEDS: PROPOFOL 1,000 MG/100 ML BOTTLE IV SCH ×2 (04:31→12:47)
[2016-11-27] MEDS: methylPREDNISolone SOD SUC 125 MG/2 ML VIAL IV SCH ×4 (04:31→21:03)
[2016-11-27 04:41] LABS: Basophils % 0.1 % (0.0-0.8); Hematocrit 28.3 VOL% (35.7-47.0); Hemoglobin 9.4 GM/DL (12.0-16.0); Immature Granulocytes % 3.1 %; Immature Granulocytes Absolute 0.56 #; Lymphocytes # 0.5 10*3/uL (1.4-4.0); Mean Corpuscular HGB Conc 33.2 GM/DL (32-36); Mean Corpuscular Hemoglobin 27 PG (27-34); Mean Corpuscular Volume 81.8 FL (87-102); Mean Platelet Volume 11.1 FL (9.6-12.0); Monocytes # 0.1 10*3/uL (0.11-0.8); Monocytes % 0.3 % (1.7-12.7); Neutrophils # 16.7 10*3/uL (1.4-7.4); Neutrophils % 93.5 % (38.7-73.9); Platelet Count 255 T/CUMM (130-400); Red Blood Count 3.46 MC/CUMM (3.8-5.5); Red Cell Distribution Width 15.2 % (9.3-17.3); White Blood Count 17.9 T/CUMM (4-12)
[2016-11-27 05:02] LABS: Calcium 8.1 MG/DL (8.5-10.1); Magnesium 2.2 MG/DL (1.8-2.4); Osmolality,Calculated 313.8 MOS/KG (273-304); Potassium 3.8 MMOL/L (3.5-5.1)
[2016-11-27 05:31] LABS: Hypochromasia 2+; Lymphocytes 3 % (20-55); Metamyelocytes 1 %; Platelet Estimate Normal; Segmented Neutrophils 94 % (50-85); Total Cells Counted 100
[2016-11-27] MEDS: FUROSEMIDE 40 MG/4 ML VIAL IV SCH (10:14)
[2016-11-27] MEDS: MEROPENEM 500 MG in SODIUM CHLORIDE 0.9% 50 ML IV SCH ×2 (10:14→21:30)
[2016-11-27] MEDS: LACTULOSE 20 GM/30 ML UDCUP PO PRN (10:14)
[2016-11-27] MEDS: POTASSIUM CHLORIDE 20 MEQ/15 ML UDCUP PER TUBE SCH ×2 (10:15→20:47)
[2016-11-27] MEDS: risperiDONE 1 MG TABLET PO SCH (10:16)
[2016-11-27] MEDS: LEVOTHYROXINE 125 MCG TABLET PO SCH (10:16)
[2016-11-27] MEDS: TACROLIMUS 0.5 MG CAPSULE PO SCH ×2 (10:16→20:48)
[2016-11-27] MEDS: BACITRACIN OINT 0.9 GM PACK TOP SCH (10:16)
[2016-11-27] MEDS: MUPIROCIN 2% OINT 22 GM TUBE TOP SCH ×2 (10:17→21:03)
[2016-11-27] MEDS: ASPIRIN EC 81 MG TABLET PO SCH (10:17)
[2016-11-27] MEDS: DILTIAZEM 60 MG TABLET PO SCH ×3 (10:27→17:35)
[2016-11-27] MEDS: PANTOPRAZOLE 40 MG VIAL IV SCH (15:06)
[2016-11-27] MEDS: ENOXAPARIN 30 MG/0.3 ML SYRINGE SUBCUT SCH (15:08)
[2016-11-27] MEDS: MONTELUKAST 10 MG TABLET PO SCH (20:48)
[2016-11-28] MEDS: MORPHINE ER 15 MG TABLET PO SCH (00:37)
[2016-11-28] MEDS: DILTIAZEM 60 MG TABLET PO SCH ×4 (00:37→18:24)
[2016-11-28] MEDS: INSULIN REGULAR 100 UNIT/ML SUBCUT SCH ×4 (00:37→18:24)
[2016-11-28] MEDS: LINEZOLID INJ 300 MG in PREMIX 1 EACH IV SCH ×2 (02:00→15:07)
[2016-11-28 04:00] LABS: ABG Base Excess 2.9 MMOL/L (-2.5-2.5); ABG Oxygen Saturation 97.8 % (95-100); ABG PCO2 35.9 MM HG (35-48); ABG PH 7.475 (7.35-7.45); ABG TCO2 24.2 MMOL/L (23-27)
[2016-11-28 04:53] LABS: Hematocrit 27.9 VOL% (35.7-47.0); Hemoglobin 9.3 GM/DL (12.0-16.0); Immature Granulocytes % 2.1 %; Immature Granulocytes Absolute 0.16 #; Lymphocytes # 0.4 10*3/uL (1.4-4.0); Lymphocytes % 5.6 % (21.3-54.2); Mean Corpuscular HGB Conc 33.3 GM/DL (32-36); Mean Corpuscular Hemoglobin 27 PG (27-34); Mean Corpuscular Volume 81.8 FL (87-102); Mean Platelet Volume 10.6 FL (9.6-12.0); Monocytes # 0.2 10*3/uL (0.11-0.8); Neutrophils # 6.9 10*3/uL (1.4-7.4); Neutrophils % 90.3 % (38.7-73.9); Platelet Count 358 T/CUMM (130-400); Red Blood Count 3.41 MC/CUMM (3.8-5.5); Red Cell Distribution Width 15.9 % (9.3-17.3); White Blood Count 7.7 T/CUMM (4-12)
[2016-11-28 05:31] LABS: Calcium 8.3 MG/DL (8.5-10.1); Magnesium 2.5 MG/DL (1.8-2.4); Osmolality,Calculated 326.5 MOS/KG (273-304); Potassium 3.8 MMOL/L (3.5-5.1)
[2016-11-28] MEDS: methylPREDNISolone SOD SUC 125 MG/2 ML VIAL IV SCH ×3 (06:02→21:57)
[2016-11-28] MEDS: PROPOFOL 1,000 MG/100 ML BOTTLE IV SCH ×2 (06:04→12:40)
[2016-11-28 06:16] LABS: Magnesium 2.5 MG/DL (1.8-2.4); Phosphorous 4.1 MG/DL (2.5-4.9); Prealbumin 25.6 MG/DL (20-40)
[2016-11-28] MEDS: ASPIRIN EC 81 MG TABLET PO SCH (09:20)
[2016-11-28] MEDS: MEROPENEM 500 MG in SODIUM CHLORIDE 0.9% 50 ML IV SCH ×2 (10:00→22:02)
[2016-11-28] MEDS: risperiDONE 1 MG TABLET PO SCH (10:01)
[2016-11-28] MEDS: TACROLIMUS 0.5 MG CAPSULE PO SCH ×2 (10:01→21:11)
[2016-11-28] MEDS: ASPIRIN CHEW 81 MG TABLET PO SCH (10:01)
[2016-11-28] MEDS: LEVOTHYROXINE 125 MCG TABLET PO SCH (10:01)
[2016-11-28] MEDS: MUPIROCIN 2% OINT 22 GM TUBE TOP SCH ×2 (10:02→21:12)
[2016-11-28] MEDS: BACITRACIN OINT 0.9 GM PACK TOP SCH (10:04)
[2016-11-28] MEDS: POTASSIUM CHLORIDE 20 MEQ/15 ML UDCUP PER TUBE SCH ×2 (10:05→21:12)
[2016-11-28] MEDS: PANTOPRAZOLE 40 MG VIAL IV SCH (15:08)
[2016-11-28] MEDS: ENOXAPARIN 30 MG/0.3 ML SYRINGE SUBCUT SCH (15:09)
[2016-11-28] MEDS: FUROSEMIDE 40 MG/4 ML VIAL IV SCH (15:14)
[2016-11-28] MEDS: INSULIN GLARGINE 100 UNIT/ML SUBCUT SCH (15:14)
[2016-11-28] MEDS: MONTELUKAST 10 MG TABLET PO SCH (21:12)
[2016-11-29] MEDS: PROPOFOL 1,000 MG/100 ML BOTTLE IV SCH ×3 (00:30→19:00)
[2016-11-29] MEDS: LINEZOLID INJ 300 MG in PREMIX 1 EACH IV SCH (02:47)
[2016-11-29 02:54] LABS: ABG Base Excess 1.2 MMOL/L (-2.5-2.5); ABG HCO3 25.1 MMOL/L (20-26); ABG Oxygen Saturation 96.3 % (95-100); ABG PCO2 36.9 MM HG (35-48); ABG PH 7.451 (7.35-7.45); ABG PO2 95.4 MM HG (80-95); ABG TCO2 26.3 MMOL/L (23-27); Allen Test Positive; Pt O2 Delivery Device Ventilator
[2016-11-29 04:53] LABS: Hematocrit 27.9 VOL% (35.7-47.0); Hemoglobin 9.1 GM/DL (12.0-16.0); Immature Granulocytes % 1.4 %; Immature Granulocytes Absolute 0.09 #; Lymphocytes # 0.4 10*3/uL (1.4-4.0); Lymphocytes % 5.7 % (21.3-54.2); Mean Corpuscular HGB Conc 32.6 GM/DL (32-36); Mean Corpuscular Hemoglobin 27 PG (27-34); Mean Corpuscular Volume 83.5 FL (87-102); Mean Platelet Volume 10.4 FL (9.6-12.0); Monocytes # 0.2 10*3/uL (0.11-0.8); Monocytes % 3.1 % (1.7-12.7); Neutrophils # 5.9 10*3/uL (1.4-7.4); Neutrophils % 89.8 % (38.7-73.9); Platelet Count 376 T/CUMM (130-400); Red Blood Count 3.34 MC/CUMM (3.8-5.5); Red Cell Distribution Width 15.9 % (9.3-17.3); White Blood Count 6.5 T/CUMM (4-12)
[2016-11-29 05:24] LABS: Calcium 7.6 MG/DL (8.5-10.1); Potassium 4.5 MMOL/L (3.5-5.1)
[2016-11-29] MEDS: DILTIAZEM 60 MG TABLET PO SCH ×4 (05:52→18:16)
[2016-11-29] MEDS: INSULIN REGULAR 100 UNIT/ML SUBCUT SCH ×4 (05:52→18:16)
[2016-11-29] MEDS: methylPREDNISolone SOD SUC 125 MG/2 ML VIAL IV SCH ×2 (08:15→21:46)
[2016-11-29] MEDS: MUPIROCIN 2% OINT 22 GM TUBE TOP SCH ×2 (08:16→21:48)
[2016-11-29] MEDS: BACITRACIN OINT 0.9 GM PACK TOP SCH (08:16)
[2016-11-29] MEDS: TACROLIMUS 0.5 MG CAPSULE PO SCH ×2 (08:16→21:48)
[2016-11-29] MEDS: risperiDONE 1 MG TABLET PO SCH (08:16)
[2016-11-29] MEDS: INSULIN GLARGINE 100 UNIT/ML SUBCUT SCH (08:16)
[2016-11-29] MEDS: LEVOTHYROXINE 125 MCG TABLET PO SCH (08:17)
[2016-11-29] MEDS: ASPIRIN CHEW 81 MG TABLET PO SCH (08:17)
[2016-11-29] MEDS: FUROSEMIDE 40 MG/4 ML VIAL IV SCH (08:18)
[2016-11-29] MEDS: MEROPENEM 500 MG in SODIUM CHLORIDE 0.9% 50 ML IV SCH ×2 (09:40→22:36)
[2016-11-29] MEDS: METOPROLOL TARTRATE 25 MG TABLET PO SCH ×2 (09:40→21:48)
[2016-11-29] MEDS: ZINC OXIDE PASTE 113 GM TUBE TOP SCH (09:40)
[2016-11-29] MEDS: LINEZOLID IV SCH (14:55)
[2016-11-29] MEDS: PANTOPRAZOLE 40 MG VIAL IV SCH (14:56)
[2016-11-29] MEDS ORDERED: INSULIN GLARGINE 100 UNIT/ML SUBCUT ONE (15:00)
[2016-11-29] MEDS: ENOXAPARIN 30 MG/0.3 ML SYRINGE SUBCUT SCH (15:03)
[2016-11-29] MEDS: MONTELUKAST 10 MG TABLET PO SCH (21:48)
[2016-11-30] MEDS: INSULIN REGULAR 100 UNIT/ML SUBCUT SCH ×3 (00:46→12:08)
[2016-11-30] MEDS: DILTIAZEM 60 MG TABLET PO SCH ×3 (00:46→12:08)
[2016-11-30] MEDS: LINEZOLID IV SCH ×2 (01:48→14:45)
[2016-11-30 03:30] LABS: ABG Base Excess -0.9 MMOL/L (-2.5-2.5); ABG HCO3 23.7 MMOL/L (20-26); ABG PH 7.445 (7.35-7.45); ABG TCO2 20.9 MMOL/L (23-27); Allen Test Positive; Pt O2 Delivery Device Ventilator
[2016-11-30 05:18] LABS: Hematocrit 26.2 VOL% (35.7-47.0); Hemoglobin 8.9 GM/DL (12.0-16.0); Immature Granulocytes % 1.2 %; Immature Granulocytes Absolute 0.11 #; Lymphocytes # 0.5 10*3/uL (1.4-4.0); Lymphocytes % 5.4 % (21.3-54.2); Mean Corpuscular Hemoglobin 28 PG (27-34); Mean Corpuscular Volume 82.4 FL (87-102); Mean Platelet Volume 10.4 FL (9.6-12.0); Monocytes # 0.2 10*3/uL (0.11-0.8); Monocytes % 2.2 % (1.7-12.7); Neutrophils # 8.1 10*3/uL (1.4-7.4); Neutrophils % 91.2 % (38.7-73.9); Platelet Count 406 T/CUMM (130-400); Red Blood Count 3.18 MC/CUMM (3.8-5.5); Red Cell Distribution Width 15.9 % (9.3-17.3); White Blood Count 8.9 T/CUMM (4-12)
[2016-11-30 05:45] LABS: Calcium 7.8 MG/DL (8.5-10.1); Potassium 4.8 MMOL/L (3.5-5.1)
[2016-11-30 05:57] LABS: Giant Platelets Few; Hypochromasia 1+; Lymphocytes 4 % (20-55); Microcytosis Slight; Ovalocytes Slight; Platelet Estimate Adequate; Segmented Neutrophils 95 % (50-85); Total Cells Counted 100
[2016-11-30] MEDS ORDERED: HYDROCORTISONE 100 MG VIAL IV SCH (08:30)
[2016-11-30] MEDS ORDERED: INSULIN GLARGINE 100 UNIT/ML SUBCUT SCH (09:00)
[2016-11-30] MEDS: TACROLIMUS 0.5 MG CAPSULE PO SCH (09:50)
[2016-11-30] MEDS: BACITRACIN OINT 0.9 GM PACK TOP SCH (09:50)
[2016-11-30] MEDS: MEROPENEM 500 MG in SODIUM CHLORIDE 0.9% 50 ML IV SCH (09:50)
[2016-11-30] MEDS: risperiDONE 1 MG TABLET PO SCH (09:51)
[2016-11-30] MEDS: LEVOTHYROXINE 125 MCG TABLET PO SCH (09:51)
[2016-11-30] MEDS: MUPIROCIN 2% OINT 22 GM TUBE TOP SCH (09:51)
[2016-11-30] MEDS: ZINC OXIDE PASTE 113 GM TUBE TOP SCH (09:51)
[2016-11-30] MEDS: ASPIRIN CHEW 81 MG TABLET PO SCH (09:51)
[2016-11-30] MEDS: METOPROLOL TARTRATE 25 MG TABLET PO SCH (09:51)
[2016-11-30] MEDS: PROPOFOL 1,000 MG/100 ML BOTTLE IV SCH (11:11)
[2016-11-30] MEDS: PANTOPRAZOLE 40 MG VIAL IV SCH (14:44)
[2016-11-30] MEDS: ENOXAPARIN 30 MG/0.3 ML SYRINGE SUBCUT SCH (15:21)
[2016-12-01 08:01] VITALS: BP 108/58
== END 2016-11-30 16:05 | disposition hospice, home (50) | DRG 166 ==
LOC: EDBD → EDUNIT# → N.ED 10:44 → SUATTDRO 14:11 → N.EDINP 14:11 → N.ICU 14:58
PROVIDERS: ADMIT Family Medicine; ATTEND Internal Medicine